=== PATIENT | female | born 2000 | race Two or more races ===

== ENCOUNTER 2019-10-23 11:19 | Emergency (ER) | payer BC ==
[~2019-10-23] VITALS: Ht 157.5 cm; Wt 81.6 kg
[2019-10-23 11:26] VITALS: BP 117/77
--- NOTE | 2019-10-23 11:28 | NUR ---
DR. RICH AT BEDSIDE FOR EVAL
--- NOTE | 2019-10-23 11:41 | NUR ---
Patient discharged to home in stable condition. Written and verbal after care instructions given. Patient verbalizes understanding of instruction.
== END 2019-10-23 11:41 | disposition home or self-care (01) ==
LOC: ER 11:24
DX: H00.011 Hordeolum externum right upper eyelid (principal)